=== PATIENT | female | born 1965 | race Caucasian/White ===

== ENCOUNTER 2019-11-02 12:42 | Emergency (ER) | payer SELFPAY ==
[2019-11-02 12:50] VITALS: BP 148/97; PULSE 99; RESP 20; TEMP 36.4; O2SAT 99
--- NOTE | 2019-11-02 13:38 | ED.URI ---
HPI - URI/Sore Throat General Chief Complaint: Upper Respiratory Infection Stated Complaint: cough/runny nose/shortness of breath Time Seen by Provider: 11/02/19 13:38 Source: patient and RN notes reviewed Mode of arrival: ambulatory Limitations: no limitations History of Present Illness HPI Narrative: 54-year-old female who presents [facility] with 4 day history of increase in shortness of breath, cough, clear nasal drainage and some tightness to her upper chest with deep breaths. Patient has history of COPD, asthma, emphysema states that she really hasn't taken her medications routinely for some time, has PCP Rica Mckeon but states she has not seen her for awhile. Patient denies any increase in wheezing, denies any sore throat or any fevers, chills or sweats, SAO2 99% on room air. Patient continues to use tobacco daily of 1ppd for the past 20 years she reports. MD elicited complaint: cough Pertinent past history: COPD, asthma and other (emphysema, tobacco abuse) Onset (ago): day(s) (4) Consistency: intermittent Severity: moderate Description of mucous: clear Able to tolerate fluids by mouth: Yes Relieving factors: rest Associated symptoms: rhinorrhea, nasal congestion, cough, shortness of breath and other (tightness with deep breathing) Treatments prior to arrival: none Related Data Allergies Allergy/AdvReac Type Severity Reaction Status Date / Time No Known Allergies Allergy Verified 11/02/19 13:34 Review of Systems Review of Systems: Narrative: CONSTITUTIONAL: Denies fever, chills, or sweats. EYES: Denies visual changes, redness, or discharge. ENT: Positive rhinorrhea, congestion, no sore throat, or otalgia. CARDIOVASCULAR: Denies chest pain, palpitations, or edema. tightness with deep breaths RESPIRATORY: Positive dry cough or dyspnea. GASTROINTESTINAL: Denies abdominal pain, nausea, vomiting, or diarrhea. GENITOURINARY: Denies dysuria or hematuria. SKIN: Denies rash or itching. MUSCULOSKELETAL: Denies back pain, joint pain, or myalgia. NEUROLOGIC: Denies headache, numbness, or weakness. PSYCHIATRIC:Positive history of anxiety or depression. All systems reviewed & are unremarkable except as noted in HPI and below PMFSH Past Medical History Medical History (Updated 11/04/19 @ 14:35 by Padmini Mendenhall NP) Anxiety Asthma COPD (chronic obstructive pulmonary disease) Hypertension Vertigo Surgical History Surgical History (Updated 11/02/19 @ 13:45 by Padmini Mendenhall NP) Hx of appendectomy Hx of tubal ligation Social History Social History (Updated 11/04/19 @ 14:36 by Padmini Mendenhall NP) Smoking packs per day: 1 Smoking cigarettes per day: 20.0 Years smoked: 20 Smoking pack-years: 20.00 Smoking status: Current every day smoker Tobacco type: cigarettes Alcohol intake: unknown Living arrangements: with family Gender identity (if verbalized by the patient): Female Comments At time of signature, agree with nursing past medical, surgical, social history. There is no relevant family history pertinent to the presenting complaint Exam Narrative: Exam Narrative: GENERAL: Well-appearing, well-nourished, and in no acute distress. HEAD: Normocephalic, atraumatic. EYES: PERRLA and EOMI. ENT: Nares red with clear rhinorrhea no epistaxis. Mucous membranes moist.TM's normal with good light reflex, throat pink with no tonsil enlargement,no exudates or any lesions, post nasal drainage noted. NECK: Supple.no lymphadenopathy CHEST:decreased to auscultation. No respiratory distress.SAO2 99% on room air. HEART: Regular rate and rhythm. No murmur heard. Normal peripheral pulses. ABDOMEN: Soft, nontender, nondistended, normal active bowel sounds. EXTREMITIES: Normal range of motion. No edema. SKIN: Warm, dry, no rash. NEURO: No focal deficits. Alert and oriented x3. Course Vital Signs Vital signs: Vital Signs Temperature 36.4 C 11/02/19 12:50 Pulse Rate 99 11/02/19 12:50 Respiratory Rate
== END 2019-11-02 14:10 | disposition home or self-care (01) ==
PROVIDERS: Emergency Provider Registered Nurse
DX: J44.1 Chronic obstructive pulmonary disease with (acute) exacerbation (principal); F17.210 Nicotine dependence, cigarettes, uncomplicated; I10 Essential (primary) hypertension
CPT/HCPCS: 99213; G0463